=== PATIENT | male | born 1975 ===

== ENCOUNTER 2017-03-12 17:35 | Day surgery (SDC) | payer BC ==
[2017-03-12] MEDS ORDERED: Ondansetron 4 MG/2 ML SDV IVPUSH ONE (17:40)
[2017-03-12] MEDS ORDERED: Morphine 4 MG/ML Syringe IVPUSH ONE ×2 (17:40→18:53)
[2017-03-12] MEDS ORDERED: Sodium Chloride 0.9% 1,000 ML IV ONE (17:44)
--- NOTE | 2017-03-12 17:44 | EDM.PDOC ---
ED HPI GENERAL MEDICAL PROBLEM - General Chief Complaint: Upper Extremity Injury/Pain Stated Complaint: PT HURT LT ARM Time Seen by Provider: 03/12/17 17:40 Source of Information: Reports: Patient History Limitations: Reports: No Limitations - History of Present Illness INITIAL COMMENTS - FREE TEXT/NARRATIVE: HISTORY AND PHYSICAL: History of present illness: Patient is a 41-year-old male who presents to the emergency room after falling on his left arm. He states he was climbing up a ladder and slipped and fell landing on an outstretched arm. He fell approximately 4 feet off the ground. He denies hitting his head or any loss of consciousness. Patient walked himself in to the emergency room. Session of comfort is guarded towards his chest holding at the wrist. There is an obvious deformity noted at the left wrist. He shouldn't is able to wiggle his fingers and has good sensation. Review of systems: As per history of present illness and below otherwise all systems reviewed and negative. Past medical history: As per history of present illness and as reviewed below otherwise noncontributory. Surgical history: As per history of present illness and as reviewed below otherwise noncontributory. Social history: No reported history of drug or alcohol abuse. Family history: As per history of present illness and as reviewed below otherwise noncontributory. Physical exam: Gen.: Well-developed and well-nourished 41-year-old male. HEENT: Atraumatic, normocephalic, pupils reactive, negative for conjunctival pallor or scleral icterus, mucous membranes moist, throat clear, neck supple, nontender, trachea midline. Lungs: Clear to auscultation, breath sounds equal bilaterally, chest nontender. Heart: S1S2, regular, negative for clicks, rubs, or JVD. Abdomen: Soft, nondistended, nontender. Negative for masses or hepatosplenomegaly. Negative for costovertebral tenderness. Pelvis: Stable nontender. Genitourinary: Deferred. Rectal: Deferred. Extremities: Fell on an outstretched hand, wrist deformity to the left wrist. Able to palpate the radial pulse. Capillary refill is less than 3 seconds, able to flex and extend the fingers. Neurovascular unremarkable. Cervical spine/back: No pin point vertebral tenderness, crepitus, obvious deformity or step-offs. Neuro: Awake, alert, oriented. Cranial nerves II through XII unremarkable. Cerebellum unremarkable. Motor and sensory unremarkable throughout. Exam nonfocal. 1819 Dr Gaytan was consulted at this time. She is aware of this case. 1911 Lukas here to see patient. 1919 Patient going to the OR with Lukas. Ramey 5/325 (Disp #20) dispensed from instrument at this time per Dr. Gaytan's request. Diagnostics: X-ray Therapeutics: Morphine, fluids, Zofran Impression: Distal radial fracture, left Plan: To the OR with Dr. Gaytan Definitive disposition and diagnosis as appropriate pending reevaluation and review of above. Onset: Today Duration: Minutes: Location: Reports: Upper Extremity, Left left wrist Pain Score (Numeric/FACES): 8 - Related Data Allergies Allergy/AdvReac Type Severity Reaction Status Date / Time No Known Allergies Allergy Verified 03/12/17 17:50 Home Meds: Home Meds . [No Known Home Meds] 03/12/17 [History] Review of Systems - Review of Systems Review Of Systems: ROS reveals no pertinent complaints other than HPI. ED EXAM, GENERAL - Physical Exam Exam: See Below (See dictation) Course - Vital Signs Last Recorded V/S: Last Vital Signs Temp 35.3 C 03/12/17 17:35 Pulse 69 03/12/17 19:10 Resp 18 03/12/17 19:10 BP 124/84 03/12/17 19:10 Pulse Ox 94 L 03/12/17 19:10 - Orders/Labs/Meds Orders: Active Orders 24 hr Category Date Time Status Communication Order [RC] STAT Care 03/12/17 17:41 Active Notify Provider Consults [RC] ASDIRECTED Care 03/12/17 19:25 Ordered Consult to Physician [CONS] Stat Cons 03/12/17 19:23 Ordered Forearm 2V Lt [CR] Stat Exams 03/12/17 17:40 Taken Wrist 2V Lt [CR] Stat Exams 03/12/17 17:40 Taken Lactated Ringers [Ringers, Lactated] 1,000 ml Med 03/12/17 17:45 Active IV ASDIRECTED Medication Orders Lactated Ringer's (Ringers, Lactated) 1,000 mls @ 125 mls/hr IV ASDIRECTED GIANNA Last Admin: 03/12/17 19:07 Dose: 125 mls/hr Meds: Medications Generic Name Dose Route Start Last Admin Trade Name Fernando PRN Reason Stop Dose Admin Lactated Ringer's 1,000 mls @ 125 mls/hr 03/12/17 17:45 03/12/17 19:07 Ringers, Lactated IV 125 mls/hr ASDIRECTED GIANNA Administration Discontinued Medications Generic Name Dose Route Start Last Admin Trade Name Fernando PRN Reason Stop Dose Admin Sodium Chloride 1,000 mls @ 999 mls/hr 03/12/17 17:44 03/12/17 18:01 Normal Saline IV 03/12/17 18:44 999 mls/hr STAT ONE Administration Morphine Sulfate 4 mg 03/12/17 17:40 03/12/17 18:03 Morphine IVPUSH 03/12/17 17:41 4 mg ONETIME ONE Administration Morphine Sulfate 4 mg 03/12/17 18:53 03/12/17 19:01 Morphine IVPUSH 03/12/17 18:54 4 mg ONETIME ONE Administration Ondansetron HCl 8 mg 03/12/17 17:40 03/12/17 18:31 Zofran IVPUSH 03/12/17 17:41 Not Given ONETIME ONE Departure - Departure Time of Disposition: 19:31 Disposition: Still A Patient 30 Clinical Impression: Distal radius fracture, left Qualifiers: Encounter type: initial encounter Fracture type: closed Fracture morphology: other fracture Qualified Code(s): S52.592A - Other fractures of lower end of left radius, initial encounter for closed fracture - Discharge Information Forms: ED Department Discharge - My Orders Last 24 Hours: My Active Orders 03/12/17 17:40 Forearm 2V Lt [CR] Stat Wrist 2V Lt [CR] Stat 03/12/17 17:41 Communication Order [RC] STAT 03/12/17 17:45 Lactated Ringers [Ringers, Lactated] 1,000 ml IV ASDIRECTED 03/12/17 19:23 Consult to Physician [CONS] Stat 03/12/17 19:25 Notify Provider Consults [RC] ASDIRECTED - Assessment/Plan Last 24 Hours: My Active Orders 03/12/17 17:40 Forearm 2V Lt [CR] Stat Wrist 2V Lt [CR] Stat 03/12/17 17:41 Communication Order [RC] STAT 03/12/17 17:45 Lactated Ringers [Ringers, Lactated] 1,000 ml IV ASDIRECTED 03/12/17 19:23 Consult to Physician [CONS] Stat 03/12/17 19:25 Notify Provider Consults [RC] ASDIRECTED
[2017-03-12] MEDS ORDERED: Lactated Ringers 1,000 ML IV SCH (17:45)
[2017-03-12] MEDS ORDERED: fentaNYL 100 MCG/2 ML SDV ONE (19:37)
[2017-03-12] MEDS ORDERED: Propofol 200 MG/20 ML SDV ONE (19:37)
[2017-03-12] MEDS ORDERED: Midazolam 1 MG/ML 2 ML SDV ONE (19:37)
[2017-03-12] MEDS ORDERED: HYDROmorphone 2 MG/ML Syringe ONE (19:37)
[2017-03-12] MEDS ORDERED: Lidocaine 2% 5 ML SDV ONE (19:39)
[2017-03-12] MEDS ORDERED: diphenhydrAMINE 50 MG/ML SDV ONE (19:39)
[2017-03-12] MEDS ORDERED: Metoclopramide 10 MG/2 ML SDV ONE (19:39)
[2017-03-12] MEDS ORDERED: Ondansetron 4 MG/2 ML SDV ONE (19:39)
--- NOTE | 2017-03-12 19:47 | PCM.HP ---
H&P History of Present Illness - General Date of Service: 03/12/17 Source of Information: Patient, Family History Limitations: Reports: No Limitations - History of Present Illness Initial Comments - Free Text/Narative: 41 y/o RHD male who fell ~4 feet off ladder earlier today, landing on outstretched left wrist. C/o immediate pain and deformity. Denies other injury. No previous h/o left wrist pain/injury. C/o vague paresthesias in hand. Onset of Symptoms: Reports: Today Duration of Symptoms: Reports: Getting Worse Location: Reports: Upper Extremity, Left Quality: Reports: Ache, Stabbing Improves with: Reports: Immobilization Worsens with: Reports: Movement Context: Reports: Trauma Associated Symptoms: Reports: No Other Symptoms left wrist Pain Score (Numeric/FACES): 8 - Related Data Allergies/Adverse Reactions: Allergies Allergy/AdvReac Type Severity Reaction Status Date / Time No Known Allergies Allergy Verified 03/12/17 17:50 Home Medications: Home Meds . [No Known Home Meds] 03/12/17 [History] Past Medical History - Past Health History Medical/Surgical History: Denies Medical/Surgical History Social & Family History - Family History Family Medical History: Noncontributory - Tobacco Use Tobacco Use Within Last Twelve Months: Smokeless Tobacco Years of Tobacco use: 3 Packs/Tins Daily: 0.5 - Alcohol Use Alcohol Use History: Yes Days Per Week of Alcohol Use: 7 Number of Drinks Per Day: 1 Total Drinks Per Week: 7 Alcohol Use in Last Twelve Months: Yes Alcohol Use Frequency: Daily - Recreational Drug Use Recreational Drug Use: No H&P Review of Systems - Review of Systems: Review Of Systems: See Below General: Reports: No Symptoms HEENT: Reports: No Symptoms Pulmonary: Reports: No Symptoms Cardiovascular: Reports: No Symptoms Gastrointestinal: Reports: No Symptoms Genitourinary: Reports: No Symptoms Skin: Reports: No Symptoms Psychiatric: Reports: No Symptoms Neurological: Reports: No Symptoms Hematologic/Lymphatic: Reports: No Symptoms Immunologic: Reports: No Symptoms Exam - Exam Exam: See Below - Vital Signs Vital Signs: Last Vital Signs Temp 95.6 F 03/12/17 17:35 Pulse 69 03/12/17 19:10 Resp 18 03/12/17 19:10 BP 124/84 03/12/17 19:10 Pulse Ox 94 L 03/12/17 19:10 Weight: 100.698 kg - Exam General: Alert, Oriented, 4 HEENT: Conjunctiva Clear, Hearing Intact, Nares Patent Neck: Supple, Trachea Midline, 2 Lungs: Normal Respiratory Effort Cardiovascular: Regular Rate GI/Abdominal Exam: Soft (Male) Exam: Deferred Rectal (Males) Exam: Deferred Back Exam: Normal Inspection Peripheral Pulses: 2+: Radial (L), Radial (R) Skin: Warm, Dry, Intact Neuro Extensive - Mental Status: Alert, Oriented x3, Normal Mood/Affect, Normal Cognition Psychiatric: Alert, Normal Affect, Normal Mood Physical Exam Comments:: Exam of LUE shows obvious swelling and deformity over the left wrist, skin intact. No TTP over elbow/shoulder. ROM deferred due to XR findings. Weakness with thumb extension and IP thumb/DIP index flexion. PIN/radial nerve intact. Rad/med/uln sensation intact. Radial pulse 2+. - Patient Data Imaging Impressions Last 24 hrs: Xr of left wrist and forearm reviewed. Show dorsally displaced fracture of the left distal radius with some comminution. Appears to be extra-articular. *Q Meaningful Use (ADM) - VTE *Q VTE Criteria *Q: - Stroke *Q Stroke Criteria *Q: - AMI *Q AMI Criteria *Q: - Problem List (1) Distal radius fracture, left SNOMED Code(s): 493064714 ICD Code: S52.502A - UNSP FRACTURE OF THE LOWER END OF LEFT RADIUS, INIT Status: Acute Current Visit: Yes Qualifiers: Encounter type: initial encounter Fracture type: closed Fracture morphology: other extra-articular Qualified Code(s): S52.552A - Other extraarticular fracture of lower end of left radius, initial encounter for closed fracture Problem List Initiated/Reviewed/Updated: Yes Orders Last 24hrs: Active Orders 24 hr Category Date Time Status Communication Order [RC] STAT Care 03/12/17 17:41 Active Notify Provider Consults [RC] ASDIRECTED Care 03/12/17 19:25 Active Consult to Physician [CONS] Stat Cons 03/12/17 19:23 Active Forearm 2V Lt [CR] Stat Exams 03/12/17 17:40 Taken Wrist 2V Lt [CR] Stat Exams 03/12/17 17:40 Taken Lactated Ringers [Ringers, Lactated] 1,000 ml Med 03/12/17 17:45 Active IV ASDIRECTED Medication Orders Lactated Ringer's (Ringers, Lactated) 1,000 mls @ 125 mls/hr IV ASDIRECTED [facility] Last Admin: 03/12/17 19:07 Dose: 125 mls/hr At this time treatment options, both conservative and surgical were d/w patient and family. Due to the displacement of the fracture, along with the unstable fracture pattern, I am recommending ORIF of the left distal radius. The procedure and post operative course were d/w the patient. Risks of surgery include, but are not limited to, infection, n/v injury, hardware irritation, stiffness, continued pain, and anesthetic complications. Patient agrees to proceed. Will plan to do tonight with discharge home when pain is controlled.
[2017-03-12] MEDS ORDERED: fentaNYL 100 MCG/2 ML SDV IVPUSH PRN (19:48)
--- NOTE | 2017-03-12 19:48 | PCM.PREANE ---
Preanesthetic Assessment - Procedure Proposed Procedure: ORIF Lt distal radius fracture - Anesthesia/Transfusion/Family Hx Anesthesia History: Prior Anesthesia Without Reaction (colonoscopy) Family History of Anesthesia Reaction: No - Review of Systems General: No Symptoms Pulmonary: No Symptoms (chewing tobacco) Cardiovascular: No Symptoms Gastrointestinal: No Symptoms (occasional food related gerd) Neurological: No Symptoms Other: Reports: None - Physical Assessment NPO Status Date: 03/12/17 NPO Status Time: 08:30 (black coffee) O2 Sat by Pulse Oximetry: 94 Respiratory Rate: 18 Vital Signs: Last Vital Signs Temp 35.3 C 03/12/17 17:35 Pulse 69 03/12/17 19:10 Resp 18 03/12/17 19:10 BP 124/84 03/12/17 19:10 Pulse Ox 94 L 03/12/17 19:10 Height: 1.65 m Weight: 100.698 kg ASA Class: 2E Mental Status: Alert & Oriented x3 Airway Class: Mallampati = 2 Dentition: Reports: Normal Dentition Thyro-Mental Finger Breadths: 4 Mouth Opening Finger Breadths: 4 ROM/Head Extension: Full Lungs: Clear to Auscultation, Normal Respiratory Effort Cardiovascular: Regular Rate, Regular Rhythm - Allergies Allergies/Adverse Reactions: Allergies Allergy/AdvReac Type Severity Reaction Status Date / Time No Known Allergies Allergy Verified 03/12/17 17:50 - Blood Blood Available: No Product(s) Available: None - Acknowledgements Anesthesia Type Planned: General Anesthesia Pt an Appropriate Candidate for the Planned Anesthesia: Yes Alternatives and Risks of Anesthesia Discussed w Pt/Guardian: Yes Pt/Guardian Understands and Agrees with Anesthesia Plan: Yes PreAnesthesia Questionnaire - Past Health History Medical/Surgical History: Denies Medical/Surgical History - SUBSTANCE USE Smoking Status *Q: Light Tobacco Smoker Tobacco Use Within Last Twelve Months: Smokeless Tobacco Days Per Week of Alcohol Use: 7 Number of Drinks Per Day: 1 Total Drinks Per Week: 7 Recreational Drug Use History: No - HOME MEDS Home Medications: Home Meds . [No Known Home Meds] 03/12/17 [History] - CURRENT (IN HOUSE) MEDS Current Meds: Current Medications Lactated Ringer's (Ringers, Lactated) 1,000 mls @ 125 mls/hr IV ASDIRECTED GIANNA Last Admin: 03/12/17 19:07 Dose: 125 mls/hr Discontinued Medications Diphenhydramine HCl (Benadryl) Confirm Administered Dose 50 mg .ROUTE .STK-MED ONE Stop: 03/12/17 19:40 Fentanyl (Sublimaze) Confirm Administered Dose 100 mcg .ROUTE .STK-MED ONE Stop: 03/12/17 19:38 Hydromorphone HCl (Dilaudid) Confirm Administered Dose 2 mg .ROUTE .STK-MED ONE Stop: 03/12/17 19:38 Sodium Chloride (Normal Saline) 1,000 mls @ 999 mls/hr IV STAT ONE Stop: 03/12/17 18:44 Last Admin: 03/12/17 18:01 Dose: 999 mls/hr Lidocaine (Xylocaine-Mpf 2%) Confirm Administered Dose 5 ml .ROUTE .STK-MED ONE Stop: 03/12/17 19:40 Metoclopramide HCl (Reglan) Confirm Administered Dose 10 mg .ROUTE .STK-MED ONE Stop: 03/12/17 19:40 Midazolam HCl (Versed 1 Mg/Ml) Confirm Administered Dose 2 mg .ROUTE .STK-MED ONE Stop: 03/12/17 19:38 Morphine Sulfate (Morphine) 4 mg IVPUSH ONETIME ONE Stop: 03/12/17 17:41 Last Admin: 03/12/17 18:03 Dose: 4 mg Morphine Sulfate (Morphine) 4 mg IVPUSH ONETIME ONE Stop: 03/12/17 18:54 Last Admin: 03/12/17 19:01 Dose: 4 mg Ondansetron HCl (Zofran) 8 mg IVPUSH ONETIME ONE Stop: 03/12/17 17:41 Last Admin: 03/12/17 18:31 Dose: Not Given Ondansetron HCl (Zofran) Confirm Administered Dose 4 mg .ROUTE .STK-MED ONE Stop: 03/12/17 19:40 Propofol (Diprivan 20 Ml) Confirm Administered Dose 200 mg .ROUTE .STK-MED ONE Stop: 03/12/17 19:38
--- NOTE | 2017-03-12 19:52 | PCM.OPNOTE ---
- General Post-Op/Procedure Note Date of Surgery/Procedure: 03/12/17 Operative Procedure(s): ORIF left wrist, extra-articular Post-Op Diagnosis: L distal radius fracture, extra-articular Anesthesia Technique: General ET Tube Primary Surgeon: Katina Gaytan Soft Work Wrapper Layer And Examiner: Mikayla De La Vega in mLs: 10 Condition: Fair Free Text/Narrative:: tt= 50 minutes #[id number]
[2017-03-12] MEDS ORDERED: HYDROmorphone 2 MG/ML Syringe IVPUSH PRN (19:53)
[2017-03-12] MEDS ORDERED: Acetaminophen/HYDROcodone 325-10 MG Tab PO PRN (19:53)
[2017-03-12] MEDS ORDERED: ceFAZolin 1 GM Vial ONE (20:12)
--- NOTE | 2017-03-12 22:11 | PCM.POSTAN ---
POST ANESTHESIA ASSESSMENT - MENTAL STATUS Mental Status: Alert - VITAL SIGNS Pulse Rate: 100 SaO2: 91 Resp Rate: 16 Blood Pressure: 128/69 - RESPIRATORY Respiratory Status: Respiratory Rate WNL, Airway Patent, O2 Saturation Stable, Supplemental Oxygen (2 l/min) - CARDIOVASCULAR CV Status: Pulse Rate WNL, Blood Pressure Stable - GASTROINTESTINAL GI Status: No Symptoms - PAIN Pain Score: 4 (medicated with fentanyl)
--- NOTE | 2017-03-12 23:50 | OR ---
SURGEON: Katina Gaytan MD DATE OF PROCEDURE: 03/12/2017 PREOPERATIVE DIAGNOSIS: Left distal radius fracture, displaced, extraarticular. POSTOPERATIVE DIAGNOSIS: Left distal radius fracture, displaced, extraarticular. PROCEDURE: Open reduction and internal fixation left distal radius fracture. FASHION DIRECTOR: Mikayla De La Vega PA-C. ANESTHESIA: General. ESTIMATED BLOOD LOSS: 5 mL. TOURNIQUET TIME: 50 minutes. COMPLICATIONS: None. DVT PROPHYLAXIS: PAS boots to bilateral lower extremities. IMPLANTS USED: Roc three hole standard plate with a combination of 2.3 mm locking and 2.7 mm nonlocking screws. BRIEF HISTORY: Bandar is a 41-year-old male who fell approximately 4 feet off a ladder earlier this evening. He complained of immediate pain in his left wrist along with deformity. He was evaluated in the emergency room. No other injuries were noted. X-rays were obtained, which showed a displaced extraarticular fracture of the distal radius. At that time, I recommended surgical treatment. Risks and goals of the procedure were discussed with the patient and were documented preoperatively. He agreed to proceed. DESCRIPTION OF PROCEDURE: The patient was properly identified and brought to the operating room. He was transferred from the OR cart and placed on the operating room table in a supine position. General anesthesia was administered. After adequate anesthesia was obtained, a well-padded tourniquet was applied to the left upper extremity. The left upper extremity was then prepped in a standard fashion using ChloraPrep solution. It was then sterilely draped. A time-out was performed to ensure correct site and procedure. Preoperative antibiotics were given. The surgical site had been marked preoperatively. An Esmarch was used to exsanguinate the left upper extremity and the tourniquet was inflated to 200 mmHg. An incision was made centered over the FCR tendon. Subcutaneous tissues were also incised. The FCR tendon was identified. Its sheath was incised. It was brought in a radial manner and the floor of the FCR sheath was incised. The FPL was identified and this was brought in a medial manner. The pronator quadratus was then located. There was some tearing of the pronator secondary to the fracture. I incised the pronator along the radial aspect and a periosteal elevator was used to elevate the muscle. The fracture was then identified. It was copiously irrigated to remove fracture hematoma. A Prospect elevator was then placed into the fracture and this was used to lever the distal fragment back onto the proximal shaft. C-arm was used to confirm acceptable positioning of the fracture in both the AP and lateral plane. A K-wire was then placed through the radial styloid into the proximal fragment for provisional fixation. It was felt that a short plate was acceptable. I also used the standard width. This was centered on the distal radius and was provisionally fixed with K-wires. Its position was checked in the AP and lateral planes using C-arm and it was felt that the position was acceptable. A 2.7 mm nonlocking screw was placed into the sliding hole proximally. 2.3 mm locking screws were then placed into the distal fragment while the wrist was held in a reduced position. All screw holes were filled except the proximal lateral row. There was some bony loss dorsally at this level and the screw did not appear to be adding any extra fixation to the construct and it was removed. Two additional 2.7 mm nonlocking screws were placed proximally. All K-wires were then removed from the plate. Final C-arm images confirmed nearly anatomic reduction of the fracture with good placement of the hardware. The wound was then copiously irrigated with saline solution. The pronator quadratus was reapproximated using 0 Vicryl. The tourniquet was then deflated. No significant bleeding was noted. Subcutaneous tissues were closed with 3-0 Vicryl and the skin was closed with a running 4-0 Monocryl. Steri-Strips and Benzoin were then placed. He was placed in a well-padded volar splint keeping the wrist in slight extension. He was awakened from his anesthetic and transferred back to the operating room cart. He was brought to recovery room in stable condition. All needle and sponge counts were correct. PETR / CRISTINO /[id number]
--- NOTE | 2017-03-13 08:51 | CR ---
EXAMINATION: Left wrist HISTORY: ORIF COMPARISON: 03/12/2017 TECHNIQUE: 4 views FINDINGS/IMPRESSION: Operative control films demonstrate screw and plate fixation of a distal radius fracture in near-anatomic alignment. There are small adjacent ulnar styloid fracture also noted.
--- NOTE | 2017-03-13 16:16 | CR ---
EXAM DATE: 03/12/17 PATIENT'S AGE: 41 Patient: CATALINA RANGEL Facility: [place], [place] Site . Site : 1975 Study: XRay Extremity Left forearm [id number] 6:07:58 PM Ordering Physician: Doctor Benito Final Report: Indication: Injury. Findings: There is diffuse soft tissue swelling and elevation the pronator quadratus fat pad. Distal compacted comminuted radial fracture is noted with marked dorsal angulation of the distal fracture fragment. Bony mineralization is normal and no other fracture nor dislocation is identified. Impression: Distal comminuted/compacted left radial fracture. Dictated by Lexi Prado MD @ Mar 12 2017 6:41PM (Electronic Signature) Report Signed by Proxy. DESIRAE
--- NOTE | 2017-03-13 16:17 | CR ---
EXAM DATE: 03/12/17 PATIENT'S AGE: 41 Patient: CATALINA RANGEL Facility: [place], [place] Site . Site : 1975 Study: XRay Extremity Left wrist [id number]/[id number] 6:08:23 PM Ordering Physician: Doctor Benito Final Report: Indication: Injury. Comparison: Left forearm 03/12/2017. Findings: Distal transverse radial fracture is noted which is comminuted and compacted with marked dorsal angulation. No other fracture nor dislocation is identified and bony mineralization is normal. Impression: Distal radial fracture Dictated by Lexi Prado MD @ Mar 12 2017 6:43PM (Electronic Signature) Report Signed by Proxy. DESIRAE
== END 2017-03-13 00:30 | disposition home or self-care (01) ==
LOC: MW.ED 17:35 → MW.SDS 19:51
PROVIDERS: ATTEND Orthopaedic Surgery
DX: S52.552A Other extraarticular fracture of lower end of left radius, initial encounter for closed fracture (principal); W11.XXXA Fall on and from ladder, initial encounter
CPT/HCPCS: 25607; 73090; 73100; 76000; A9270; J0690; J1170; J1200; J2250; J2270; J2405; J2765; J3010; J7040; J7120; 01830; 96361; 96365; 96375; 96376; 99284; 99284-25; C1713; C1776; J2704